=== PATIENT | female | born 1965 | race Caucasian/White ===

== ENCOUNTER → 2017-07-02 | Outpatient (CLI) | payer OTHER ==
--- NOTE | 2017-07-03 08:06 | US ---
EXAMINATION TYPE: US thyroid st tissue head/neck DATE OF EXAM: 07/02/2017 COMPARISON: NONE CLINICAL HISTORY: E04.2 multinodular goiter. Partial thyroidectomy - right - 1.5 years ago GLAND SIZE: Right Lobe: Surgically absent Left Lobe: 4.0 x 1.7 x 2.2 cm Overall Parenchyma: heterogeneous Isthmus Thickness: 0.3 cm NODULES RIGHT: # of nodules measured on right: LEFT: # of nodules measured on left: 1. 2.1 X 1.1 x 1.4 cm isoechoic solid nodule at the mid pole with poorly defined margins; . This n odule is taller than wide and shows intranodular vascularity. Prior size: no prior exam ISTHMUS: # of nodules measured in the isthmus: Bilateral neck scanned, no evidence of lymphadenopathy. Right lobe surgically absent. Heterogeneous left lobe with 1 nodule measured and documented. Possible nodule left lower pole vs. Heterogenous thyroid tissue IMPRESSION: Right thyroid is surgically absent. There is heterogeneous left thyroid with anterior isoechoic to sl ightly hypoechoic, tall greater than wide 2.1 cm solid nodule. Probable second heterogeneous hypoecho ic somewhat ill-defined 1.4 cm solid nodule lower pole level. Correlation with old outside ultrasound s advised as well as clinical correlation to assess if further investigation with sampling is necessa ry. No prior thyroid ultrasounds at this institution noted.
== END | disposition home or self-care (01) ==
LOC: RADUSWWP 16:46
PROVIDERS: ATTEND Internal Medicine Endocrinology, Diabetes & Metabolism
DX: E04.2 Nontoxic multinodular goiter (principal)
CPT/HCPCS: 76536

== ENCOUNTER → 2017-08-21 | Outpatient (CLI) | payer OTHER ==
[2017-08-21 11:01] VITALS: BMI 36.6
== END | disposition home or self-care (01) ==
LOC: MNTWWP 09:04
PROVIDERS: ATTEND Family Medicine
DX: E66.9 Obesity, unspecified (principal); E78.2 Mixed hyperlipidemia
CPT/HCPCS: 97802

== ENCOUNTER → 2018-03-18 | Outpatient (CLI) | payer OTHER ==
--- NOTE | 2018-03-18 18:04 | US ---
EXAMINATION TYPE: US thyroid st tissue head/neck DATE OF EXAM: 03/18/2018 COMPARISON: 07/02/2017 CLINICAL HISTORY: R10.13 Epigastric pain. Right thyroidectomy f/u to previous exam. GLAND SIZE: Right Lobe: Surgically absent Left Lobe: 6.0 x 2.2 x 1.9 cm Overall Parenchyma: heterogeneous Isthmus Thickness: 0.3 cm NODULES LEFT: # of nodules measured on left: 2 1. 2.1 X 1.2 x 1.5 cm isoechoic solid nodule at the mid pole with poorly defined margins; . This n odule is taller than wide and shows intranodular vascularity. Prior size: 2.1 x 1.1 x 1.4 cm 2. 1.2 X 1.2 x 1.2 cm isoechoic solid nodule at the lower pole with poorly defined margins; . This nodule is taller than wide and shows intranodular vascularity. Prior size: 1.3 x 1.0 x 1.2 cm ISTHMUS: # of nodules measured in the isthmus: 0 Bilateral neck scanned, no evidence of lymphadenopathy. Hypoechoic area lateral right neck measuring .6 x .4 x .5cm with a vascular hilum. Two nodules seen o n left side stable in size compared to previous. IMPRESSION: Small simple lymph nodes demonstrated on the right side. Stable appearance of the thyroid gland luke red to old exam. Stable thyroid nodules.
== END ==
LOC: RADUSMAIN 16:49
PROVIDERS: ATTEND Internal Medicine Endocrinology, Diabetes & Metabolism
DX: E04.2 Nontoxic multinodular goiter (principal); R53.83 Other fatigue
CPT/HCPCS: 76536; 84443

== ENCOUNTER → 2019-03-22 | Outpatient (CLI) | payer OTHER ==
[2019-03-22 17:32] LABS: T4, Free (Free Thyroxine) 0.94 ng/dL (0.78-2.19)
--- NOTE | 2019-03-23 07:40 | US ---
EXAMINATION TYPE: US thyroid st tissue head/neck DATE OF EXAM: 03/22/2019 COMPARISON: CLINICAL HISTORY: E04.2 nontoxic multinodular goiter. Right thyroid removed. Follow up left nodules. No thyroid meds. GLAND SIZE: Right Lobe: Surgically absent Left Lobe: 4.4 x 2.1 x 1.9 cm Overall Parenchyma: homogeneous Isthmus Thickness: 0.2 cm NODULES RIGHT: Surgically removed LEFT: # of nodules measured on left: 2 1. 2.1 X 1.7 x 1.1 cm isoechoic nodule at the mid pole with well-defined margins. This nodule is w ider than tall and shows intranodular vascularity. Prior size: 2.1 x 1.2 x 1.5 cm 2. 1.2 X 1.1 x 1.2 cm hypoechoic solid nodule at the lower pole with well-defined margins. This nod ule is taller than wide and shows intranodular vascularity. Prior size: 1.2 x 1.2 x 1.2 cm ISTHMUS: # of nodules measured in the isthmus: 0 Bilateral neck scanned, no evidence of lymphadenopathy. IMPRESSION: 1. Stable left thyroid lobe nodules.
== END | disposition home or self-care (01) ==
LOC: RADUSWWP 16:00
PROVIDERS: ATTEND Internal Medicine Endocrinology, Diabetes & Metabolism
DX: E04.1 Nontoxic single thyroid nodule (principal); E04.2 Nontoxic multinodular goiter
CPT/HCPCS: 36415; 76536; 84439; 84443

== ENCOUNTER → 2020-03-26 | Outpatient (CLI) | payer OTHER ==
[2020-03-26 14:28] LABS: T4, Free (Free Thyroxine) 1.02 ng/dL (0.78-2.19)
--- NOTE | 2020-03-26 15:48 | US ---
EXAMINATION TYPE: US thyroid st tissue head/neck DATE OF EXAM: 03/26/2020 COMPARISON: US 03/22/19 CLINICAL HISTORY: 54-year-old female E04.2 NONTOXIC MULTINODULAR GOITER. Rt thyroidectomy TECHNIQUE: Multiple sonographic images of the thyroid gland are obtained. FINDINGS: GLAND SIZE: Right Lobe: Surgically absent Left Lobe: 4.0 x 1.7 x 2.2 cm Overall Parenchyma: homogeneous Isthmus Thickness: 0.2 cm NODULES RIGHT: Surgically absent LEFT: # of nodules measured on left: 2 1. 2.4 X 1.7 x 1.2 cm isoechoic solid nodule at the mid pole with well-defined margins; . This nodu le is wider than tall and shows intranodular vascularity. Prior size: 2.1 x 1.7 x 1.1 cm 2. 1.5 X 1.3 x 1.6 cm isoechoic solid nodule at the lower pole with well-defined margins; . This no dule is wider than tall and shows intranodular vascularity. Prior size: 1.2 x 1.1 x 1.2 cm ISTHMUS: # of nodules measured in the isthmus: 0 Bilateral neck scanned, no evidence of lymphadenopathy. Prominent but nonenlarged lymph node in the lateral right neck measuring 1.0 x 0.4 x 0.7 cm IMPRESSION: 1. Status post right thyroidectomy. 2. Two dominant nodules in the left lobe measuring 2.4 x 1.7 cm (not significantly changed as compare d to 2.1 x 1.7 cm, previously) and 1.6 x 1.5 cm (slightly larger as compared to 1.2 x 1.2 cm, previou sly).
== END | disposition home or self-care (01) ==
LOC: RADUSWWP 12:52
PROVIDERS: ATTEND Internal Medicine Endocrinology, Diabetes & Metabolism
DX: E89.0 Postprocedural hypothyroidism (principal); E04.2 Nontoxic multinodular goiter
CPT/HCPCS: 76536; 84439; 84443

== ENCOUNTER → 2021-02-22 | Outpatient (CLI) | payer OTHER ==
--- NOTE | 2021-02-22 14:38 | US ---
EXAMINATION TYPE: US thyroid st tissue head/neck DATE OF EXAM: 02/22/2021 COMPARISON: 03/26/2020 US CLINICAL HISTORY: E04.2 Nontoxic multinodular goiter. History of right thyroidectomy. GLAND SIZE: Right Lobe: Surgically absent cm Left Lobe: 5.5x2.1x2.3 cm Overall Parenchyma: homogeneous Isthmus Thickness: 0.3 cm NODULES RIGHT: # of nodules measured on right: NO RESIDUAL THYROID TISSUE. LEFT: # of nodules measured on left: 2 1. 3.1 X 1.4 x 1.8 cm, mid mid, solid or almost completely solid, isoechoic nodule, which is wider than tall, with smooth margins, without echogenic foci. Prior size: 2.4 x 1.2 x 1.7 cm 2. 1.6 X 1.5 x 1.7 cm, lower mid, solid or almost completely solid, isoechoic nodule, which is wid er than tall, with smooth margins, without echogenic foci. Prior size: 1.5 x 1.3 x 1.6 cm ISTHMUS: # of nodules measured in the isthmus: 0 Bilateral neck scanned, no evidence of lymphadenopathy. IMPRESSION: Multinodular thyroid with interval increase in size of the largest left thyroid nodule. Postsurgical change on the right with no residual tissue seen. 2017 ACR TI-RADS LEVEL: TR-RADS 3 - Mildly Suspicious: Follow if > 1.5 cm, FNA if > 2.5 cm *Highest TI-RADS level nodule reported
== END | disposition home or self-care (01) ==
LOC: RADUSWWP 13:56
PROVIDERS: ATTEND Internal Medicine Endocrinology, Diabetes & Metabolism
DX: E04.2 Nontoxic multinodular goiter (principal)
CPT/HCPCS: 76536

== ENCOUNTER → 2021-08-29 | Outpatient (CLI) | payer OTHER ==
--- NOTE | 2021-08-29 09:45 | XR ---
EXAMINATION TYPE: XR chest 2V DATE OF EXAM: 08/29/2021 COMPARISON: NONE TECHNIQUE: PA and lateral views submitted. HISTORY: Cough FINDINGS: The lungs are clear and there is no pneumothorax, pleural effusion, or focal pneumonia. There is an interstitial pattern noted. IMPRESSION: 1. Correlate for interstitial pneumonitis or bronchitis..
== END | disposition home or self-care (01) ==
LOC: RADXRMAIN 07:15
PROVIDERS: ATTEND Family Medicine
DX: R05.9 Cough, unspecified (principal); Z86.16 Personal history of COVID-19
CPT/HCPCS: 71046

== ENCOUNTER → 2021-08-29 | Outpatient (CLI) | payer OTHER ==
--- NOTE | 2021-08-29 16:07 | US ---
EXAMINATION TYPE: US thyroid st tissue head/neck DATE OF EXAM: 08/29/2021 COMPARISON: NONE CLINICAL HISTORY: E04.2 MULTINODULAR GOITER. Follow up to prior exam, Right thyroidectomy. GLAND SIZE: Right Lobe: Surgically absent cm Left Lobe: 5.9 x 2.7 x 2.3 cm Overall Parenchyma: heterogeneous Isthmus Thickness: 0.3 cm NODULES RIGHT: # of nodules measured on right: 0 LEFT: # of nodules measured on left: 2 1. 2.9 X 2.1 x 1.4 cm, mid lateral, solid or almost completely solid, hypoechoic nodule, which is w ider than tall, with lobulated or irregular margins, without echogenic foci. TR 4 2. 1.6 X 1.7 x 1.4 cm, lower mid, solid or almost completely solid, hypoechoic nodule, which is wi opal than tall, with lobulated or irregular margins, without echogenic foci. ISTHMUS: # of nodules measured in the isthmus: 0 Bilateral neck scanned, Right neck lymph node measuring 1). 1.2 x 0.8 x 0.5cm, Left neck lymph node m easuring 1). 1.3 x 1.1 x 0.6cm IMPRESSION: Moderately suspicious nodule left lobe thyroid. Fine-needle aspiration recommended. 2017 ACR TI-RADS LEVEL: TR-RADS 4 - Moderately Suspicious: Follow if > 1 cm, FNA if > 1.5 cm *Highest TI-RADS level nodule reported
== END | disposition home or self-care (01) ==
LOC: RADUSWWP 06:58
PROVIDERS: ATTEND Internal Medicine Endocrinology, Diabetes & Metabolism
DX: E04.2 Nontoxic multinodular goiter (principal)
CPT/HCPCS: 76536

== ENCOUNTER → 2022-10-03 | Outpatient (CLI) | payer OTHER ==
[2022-10-04 02:38] LABS: T4, Free (Free Thyroxine) 1.06 ng/dL (0.800-1.800)
--- NOTE | 2022-10-05 23:17 | US ---
EXAMINATION TYPE: US thyroid st tissue head/neck DATE OF EXAM: 10/03/2022 COMPARISON: NONE CLINICAL INDICATION: Female, 57 years old with history of E04.2 Nontoxic multinodular goiter; follow- up exam, h/o left side biopsy GLAND SIZE: Right Lobe: Surgically absent Left Lobe: 5.5 x 2.4 x 2.4 cm Overall Parenchyma: heterogeneous Isthmus Thickness: 0.3 cm NODULES RIGHT: # of nodules measured on right: 0 LEFT: # of nodules measured on left: 2 1. 3.1 x 2.3 x 1.5cm, mid , solid or almost completely solid, isoechoic TR 3 nodule, which is wider than tall, with smooth margins, without echogenic foci. Prior size: 2.9 x 2.1 x 1.4 cm 2. 1.7 X 1.6 x 1.2 cm, lower , solid or almost completely solid, isoechoic TR 3 nodule, which is w ider than tall, with smooth margins, without echogenic foci. Prior size: 1.6 x 1.7 x 1.4 cm ISTHMUS: # of nodules measured in the isthmus: 0 Bilateral neck scanned, no evidence of lymphadenopathy. IMPRESSION: Status post right thyroidectomy. There are two TR 3 nodules in the left lobe measuring 3.1 and 1.7 cm . These are either stable or minimally enlarged from prior exam where they measured 2.9 and 1.7 cm, r espectively. Ongoing follow-up if tissue sampling not previously performed.
== END | disposition home or self-care (01) ==
LOC: RADUSWWP 15:28
PROVIDERS: ATTEND Internal Medicine Endocrinology, Diabetes & Metabolism
DX: E04.2 Nontoxic multinodular goiter (principal); Z90.89 Acquired absence of other organs
CPT/HCPCS: 76536; 84439; 84443

== ENCOUNTER → 2023-04-24 | Outpatient (CLI) | payer OTHER ==
[2023-04-25 02:28] LABS: T4, Free (Free Thyroxine) 1.05 ng/dL (0.80-1.80)
--- NOTE | 2023-04-25 12:16 | US ---
EXAMINATION TYPE: US thyroid st tissue head/neck DATE OF EXAM: 04/24/2023 COMPARISON: 09/25/2022 CLINICAL INDICATION: Female, 57 years old with history of E04.2 GOITER; GLAND SIZE: Right Lobe: Surgically absent; questionable residual tissue = 0.8 x 0.4 x 0.4 cm Left Lobe: 6.4 x 2.4 x 2.8 cm Overall Parenchyma: Markedly heterogeneous. Isthmus Thickness: 2 mm NODULES RIGHT: # of nodules measured on right: 0 LEFT: # of nodules measured on left: 3 1. 3.3 X 1.8 x 2.2 cm, upper lateral, solid or almost completely solid, echogenic TR3 nodule, which is wider than tall, with smooth margins, without echogenic foci. Prior size: 3.1 x 1.5 x 2.3 cm 2. 1.9 X 1.2 x 1.6 cm, lower mid, solid or almost completely solid, isoechoic TR 3 nodule, which i s wider than tall, with smooth margins, without echogenic foci. Prior size: 1.7 x 1.2 x 1.6 cm 3. 0.4 X 0.4 x 0.5 cm, mid medial, mixed cystic and solid, hypoechoic TR 4 nodule, which is wider t vill[place] tall, with smooth margins, without echogenic foci. Prior size: not seen on prior ISTHMUS: # of nodules measured in the isthmus: 0 Bilateral neck scanned, a few lymph nodes right lateral neck, largest measuring 1.3 x 1.0 x 0.5 cm. IMPRESSION: 1. The right thyroid lobe is surgically absent. A small focus of either residual/regenerating tissue or a new nodule measuring 8 mm in the right thyroidectomy bed is noted. Attention on follow-up. 2. Solid nodules in the left lobe. The dominant TR 3 nodules have slightly increased in size (3.3 cm now versus 3.1 cm, previously. Also, 1.9 cm now versus 1.7 cm, previously. FNA can be considered for TR3 nodules at 2.5 cm. 3. 5 mm TR for nodule not clearly seen previously. Attention on follow-up. Definite regions 1.5 cm. 4. A few lymph nodes noted along the right side of the neck, largest measuring 1 cm short axis, mildl y thickened, can be reassessed at follow-up.
== END | disposition home or self-care (01) ==
LOC: RADUSWWP 16:05
PROVIDERS: ATTEND Internal Medicine Endocrinology, Diabetes & Metabolism
DX: E04.2 Nontoxic multinodular goiter (principal); I89.8 Other specified noninfective disorders of lymphatic vessels and lymph nodes; Z90.89 Acquired absence of other organs
CPT/HCPCS: 76536; 84439; 84443

== ENCOUNTER → 2023-09-01 | Day surgery (SDC) | payer OTHER ==
[2023-08-28 14:19] VITALS: BMI 37.5
[~2023-09-01] MED LIST: LIDOCAINE 1% (10MG/ML) FOR IV START INTRADERMA PRN; LIDOCAINE 1% INJ 10MG/ML (20 ML MDV) ONE; PROPOFOL 10 MG/ML 20 ML VIAL IV ONE
[2023-09-01] MEDS: LACTATED RINGERS 1,000 ML IV SCH (10:52)
[2023-09-01 11:14] VITALS: RESP 16; TEMP 97.3
--- NOTE | 2023-09-01 11:57 | P.PCN ---
Date of Procedure: 09/01/23 Procedure(s) Performed: BRIEF HISTORY: Patient is a 58-year-old pleasant white female scheduled for an elective colonoscopy as a part of screening for colon cancer. PROCEDURE PERFORMED: Colonoscopy with biopsy. PREOPERATIVE DIAGNOSIS: Screening for colon cancer. IV sedation per Anesthesia. PROCEDURE: After informed consent was obtained, the patient, was brought into the endoscopy unit. IV sedation was administered by Anesthesia under continuous monitoring. Digital rectal examination was normal. Initially the Olympus CF-160 flexible video colonoscope was then inserted in the rectum, gradually advanced into the cecum without any difficulty. Careful examination was performed as the scope was gradually being withdrawn. Ileocecal valve and the appendiceal orifice were visualized and appeared normal. Prep was fair.. Mucosa of the cecum appeared normal. In the ascending colon there was a 3-4 mm sessile polyp that was removed by cold biopsy. Rest of the, ascending colon, transverse colon, descending colon, sigmoid colon, and rectum appeared normal. Retroflexion was performed in the rectum and no lesions were seen. The patient tolerated the procedure well. IMPRESSION: 3-4 mm ascending colon polyp status post-cold biopsy Rest of the colon appeared normal RECOMMENDATIONS: Findings of this examination were discussed with the patient as well as her family. She was advised to follow with the biopsy results. If the biopsy results and number she can have a repeat colonoscopy in 5 years..
[2023-09-01 12:29] VITALS: BP 134/85; PULSE 72
== END ==
LOC: ORWHC2ENDO 10:02
PROVIDERS: ATTEND Internal Medicine Gastroenterology
DX: Z12.11 Encounter for screening for malignant neoplasm of colon (principal); D12.2 Benign neoplasm of ascending colon; E78.5 Hyperlipidemia, unspecified; E07.9 Disorder of thyroid, unspecified; E04.1 Nontoxic single thyroid nodule; G62.9 Polyneuropathy, unspecified; F32.A Depression, unspecified; Z86.010 Personal history of colon polyps; Z98.890 Other specified postprocedural states; Z79.899 Other long term (current) drug therapy; Z88.2 Allergy status to sulfonamides
CPT/HCPCS: 88305; 45380; J2001; J2704

== ENCOUNTER → 2023-10-13 | Outpatient (CLI) | payer OTHER ==
--- NOTE | 2023-10-13 16:31 | US ---
EXAMINATION TYPE: US thyroid st tissue head/neck DATE OF EXAM: 10/13/2023 COMPARISON: 04/24/2023. CLINICAL INDICATION: Female, 58 years old with history of E04.2 NONTOXIC MULTINODULAR GOITER; Right t hyroid removed thy nodules GLAND SIZE: Right Lobe: Surgically absent Left Lobe: 5.6 x 2.2 x 2.8 cm Overall Parenchyma: heterogeneous Isthmus Thickness: .2 cm NODULES RIGHT: # of nodules measured on right: 0 Surgically absent right LEFT: # of nodules measured on left: 1 1. 3.0 X 1.5 x 2.3 cm, mid Prior size: 2.4 x 1.2 x 1.6 cm TIRADS Score: 3 TIRADS Category 3: Composition: Solid or almost completely solid (2 points). Echogenicity: Hyperechoic or isoechoic (1 point). Shape: Wider than tall (0 points). Margin: Smooth (0 points). Echogenic foci: None or large comet-tail artifacts (0 points) Recommendation: If >2.5cm: FNA; If >1.5cm: Follow up at 1,3,5 years ISTHMUS: # of nodules measured in the isthmus: 0 Hypoechoic area right neck lateral 1.1 x .5 x .8 cm. IMPRESSION: Left thyroid nodule image criteria for fine-needle aspiration of nodularity performed.
[2023-10-14 03:10] LABS: T4, Free (Free Thyroxine) 1.12 ng/dL (0.80-1.80)
== END | disposition home or self-care (01) ==
LOC: RADUSWWP 15:33
PROVIDERS: ATTEND Internal Medicine Endocrinology, Diabetes & Metabolism
DX: E04.1 Nontoxic single thyroid nodule (principal); Z90.89 Acquired absence of other organs
CPT/HCPCS: 76536; 84439; 84443

== ENCOUNTER 2023-11-23 07:58 | Day surgery (SDC) | payer OTHER ==
[2023-11-23 08:28] VITALS: TEMP 98
[2023-11-23 09:28] VITALS: PULSE 71; RESP 16
[2023-11-23 09:48] VITALS: BP 140/80
--- NOTE | 2023-11-23 11:08 | US ---
EXAMINATION TYPE: US FNA thyroid first lesion DATE OF EXAM: 11/23/2023 9:49 AM CLINICAL INDICATION:Female, 58 years old with history of E04.1 NONTOXIC SINGLE THYROID NODULE; , thyr oid nodule. COMPARISON: 12/26/2023 ATTENDING: Dr. Isael Rizvi PROCEDURE: Informed consent was obtained. The risks and benefits of the procedure were discussed with the patien t. The site was marked. Timeout procedure was performed Ultrasound imaging of the thyroid demonstrates multinodular thyroid gland The patient was prepped, draped in the usual sterile fashion, and locally anesthetized with 1% lidoca ine. Six fine needle aspiration were then performed with a 25 gauge needle. Samples were sent to the pathology department for further analysis. Patient tolerated the procedure without incident and was sent home in stable condition. IMPRESSION: Successful ultrasound guided fine needle aspiration.
== END 2023-11-23 09:50 | disposition home or self-care (01) ==
LOC: RADPROMAIN 07:58
PROVIDERS: ATTEND Internal Medicine Endocrinology, Diabetes & Metabolism
DX: E04.1 Nontoxic single thyroid nodule (principal)
CPT/HCPCS: 10005; 88173; 88305

== ENCOUNTER → 2024-06-07 | Outpatient (CLI) | payer OTHER ==
[2024-06-07 15:21] LABS: T4, Free (Free Thyroxine) 0.98 ng/dL (0.80-1.80)
== END | disposition home or self-care (01) ==
LOC: LABWHC1 10:45
PROVIDERS: ATTEND Internal Medicine Endocrinology, Diabetes & Metabolism
DX: E04.2 Nontoxic multinodular goiter (principal)
CPT/HCPCS: 36415; 84439; 84443

== ENCOUNTER → 2024-12-08 | Outpatient (CLI) | payer OTHER ==
--- NOTE | 2024-12-09 08:34 | US ---
EXAMINATION TYPE: US thyroid st tissue head/neck DATE OF EXAM: 12/08/2024 COMPARISON: 10/13/2023, FNA 11/23/2023 CLINICAL INDICATION: Female, 59 years old with history of E04.2 NONTOXIC MULTINODULAR GOITER; F/u TECHNIQUE: Grayscale and color Doppler imaging of the thyroid gland. FINDINGS: GLAND SIZE: Right Lobe: Surgically absent Probable lymph node again seen within rt neck: 1.2x0.6x1.1cm prior us: 1.1x0.5x0.8cm Left Lobe: 6.0x2.3x2.8cm Overall Parenchyma: heterogeneous Isthmus Thickness: 0.3cm NODULES RIGHT: # of nodules measured on right: 0 LEFT: # of nodules measured on left: 2 1. 3.9 x 1.7 x 2.6m, mid mid, Prior size: 3.0 x 1.5 x 2.3cm TIRADS Score: 4 TIRADS Category 4: Composition: Solid or almost completely solid (2 points). Echogenicity: Hypoechoic (2 points). Shape: Wider than tall (0 points). Margin: Smooth (0 points). Echogenic foci: None or large comet-tail artifacts (0 points) Recommendation: Previously biopsied 11/23/2023 2. 1.8 1.6x 2.0m, lower mid, TIRADS Score: 4 TIRADS Category 4: Composition: Solid or almost completely solid (2 points). Echogenicity: Hypoechoic (2 points). Shape: Wider than tall (0 points). Margin: Smooth (0 points). Echogenic foci: None or large comet-tail artifacts (0 points) Recommendation: If >1.5cm: FNA; If >1cm: Follow up at 1,2, 3,5 years ISTHMUS: # of nodules measured in the isthmus: 0 Bilateral neck scanned, no evidence of lymphadenopathy. IMPRESSION: Left inferior thyroid nodule is more prominent on today's exam and meets criteria for tissue sampling if not already performed. The left superior thyroid nodule has been biopsied already. Highest TI-RADS level nodule reported: 2017 ACR TI-RADS LEVEL: TI-RADS 4 - Moderately Suspicious: Follow if > 1 cm, FNA if > 1.5 cm TI-RADS assessment score and recommendation for follow-up based on appropriate scoring and treatment protocols. TR1 Benign No FNA TR2 Not suspicious No FNA TR3: If nodule size is ? 2.5 cm, FNA is recommended. If nodule size is ? 1.5 cm, follow-up imaging at 1, 3, and 5 years is recommended. TR4: If nodule size is ? 1.5 cm, FNA is recommended. If nodule size is ? 1.0 cm, follow-up imaging at 1, 2, 3, and 5 years is recommended. TR5: If nodule size is ? 1.0 cm, FNA is recommended. If nodule size is ? 0.5 cm, annual follow-up for up to 5 years is recommended. TR 1 thyroid nodules have a 0.3 % risk of malignancy. TR 2 thyroid nodules have a 1.5 % risk of malignancy. TR 3 thyroid nodules have a 4.8 % risk of malignancy. TR 4 thyroid nodules have a 9.1 % risk of malignancy. TR 5 thyroid nodules have a 35 % risk of malignancy. [email or web address], , 12/09/2024 8:31 AM
== END | disposition home or self-care (01) ==
LOC: RADUSWWP 15:39
PROVIDERS: ATTEND Internal Medicine Endocrinology, Diabetes & Metabolism
DX: E04.2 Nontoxic multinodular goiter (principal)
CPT/HCPCS: 76536